=== PATIENT | male | born 1960 | race Caucasian/White ===

== ENCOUNTER 2017-07-26 09:19 | Day surgery (SDC) | payer BC, OTHER ==
[2017-07-26] MEDS ORDERED: LACTATED RINGERS 1,000 ML IV ONE (09:53)
[2017-07-26] MEDS ORDERED: fentaNYL 100 MCG/2 ML VIAL IVP ONE (11:19)
[2017-07-26] MEDS ORDERED: MIDAZOLAM 2 MG/2 ML VIAL IVP ONE (11:19)
[2017-07-26 11:49] VITALS: BP 126/78
== END 2017-07-26 09:20 | disposition home or self-care (01) ==
LOC: SDS 09:19
PROVIDERS: ATTEND Surgery
PROC: 0DJD8ZZ Inspection of Lower Intestinal Tract, Via Natural or Artificial Opening Endoscopic (ICD-10-PCS; principal; 2017-07-26 10:30)
DX: Z12.11 Encounter for screening for malignant neoplasm of colon (principal); K57.30 Diverticulosis of large intestine without perforation or abscess without bleeding; Z86.010 Personal history of colon polyps; K64.8 Other hemorrhoids; J44.9 Chronic obstructive pulmonary disease, unspecified; Z87.891 Personal history of nicotine dependence
CPT/HCPCS: 45378; J7120

== ENCOUNTER 2021-05-26 08:55 | Outpatient (CLI) | payer OTHER ==
--- NOTE | 2021-05-26 09:41 | CT Report ---
PROCEDURE: Low Dose Lung Cancer Screen INDICATIONS: CURRENT SMOKER TECHNIQUE: Noncontrast low-dose images were acquired from the pulmonary apices to the posterior costophrenic ang les. Multiplanar MIP reformats were then acquired. For radiation dose reduction, the following was used: automated exposure control, adjustment of mA and/or kV according to patient size. COMPARISON: None. FINDINGS: Image quality: Excellent. Lungs and pleura: There is extensive bilateral tree-in-bud patchy opacity, involving all lobes of th e lungs, with relative sparing of the upper lobes. Findings are consistent with chronic atypical infe ction. There is also mild diffuse bronchial wall thickening and bronchiectasis. No suspicious solid l gisela nodules are identified. Mediastinum: Heart size is normal. No pericardial effusion. Mild coronary artery calcifications. N o mediastinal adenopathy by size criteria. Thoracic aorta and central pulmonary arteries are normal in size. Esophagus is normal in caliber. No hiatal hernia. Bones and chest wall: No suspicious bony lesions. No vertebral body compression fractures. No axil julito or supraclavicular adenopathy by size criteria. The thyroid is normal in size and there are no incidental findings. Abdomen: Visualized upper abdomen solid organs and bowel loops appear normal in the absence of contr ast. IMPRESSION: 1. LungRads category 1: Negative. No nodules and/or definitely benign nodules. 2. Annual low-dose noncontrast CT of the chest is recommended for lung cancer screening. 3. Clinically significant or potentially clinically significant findings (nonlung cancer): Extensive bilateral tree-in-bud patchy opacities, consistent with chronic atypical infection. Diffuse bronchial wall thickening and bronchiectasis are also present. Additionally, there are mild coronary artery ca lcifications. Comment: Would recommend 3 month follow-up CT of the chest, in addition to the yearly lung screening CT. From stenosis to document lack of progression or stability or improvement in the diffuse tree-in- bud opacities. CLINICAL RECOMMENDATION STATEMENTS: In patients <35 years with an ITN detected on CT, MRI, or extrathyroidal ultrasound, the Committee re commends further evaluation with dedicated thyroid ultrasound if the nodule is "e1 cm and has no susp icious imaging features, and if the patient has normal life expectancy. In patients "e35 years with an ITN detected on CT, MRI, or extrathyroidal ultrasound, the Committee r ecommends further evaluation with dedicated thyroid ultrasound if the nodule is "e1.5 cm and has no s uspicious imaging features, and if the patient has normal life expectancy. (ACR, 2014) Reviewed by: Kanu Thibodeaux MD on 05/26/2021 9:40 AM PDT Approved by: Kanu Thibodeaux MD on 05/26/2021 9:40 AM PDT Station ID: [id number]
== END 2021-05-26 08:56 | disposition home or self-care (01) ==
LOC: DI 08:55
PROVIDERS: ATTEND Registered Nurse
DX: Z12.2 Encounter for screening for malignant neoplasm of respiratory organs (principal); F17.210 Nicotine dependence, cigarettes, uncomplicated; R91.8 Other nonspecific abnormal finding of lung field; J47.9 Bronchiectasis, uncomplicated; I25.10 Atherosclerotic heart disease of native coronary artery without angina pectoris

== ENCOUNTER 2022-12-22 09:12 | Outpatient (CLI) | payer OTHER ==
--- NOTE | 2022-12-22 13:17 | CT Report ---
PROCEDURE: Low Dose Lung Cancer Screen INDICATIONS: CURRENT SMOKER TECHNIQUE: Noncontrast low-dose axial images were acquired from the pulmonary apices to the posterior costophren ic angles. Multiplanar MIP reformats were then reconstructed. For radiation dose reduction, the follo wing was used: automated exposure control, adjustment of mA and/or kV according to patient size. COMPARISON: 05/26/2021 FINDINGS: Prior cancer history: Unsure. Lungs and pleura: Mild emphysema. Nodules include: -Right middle lobe: 3 mm (4/222), unchanged. -Left upper lobe: 4 mm (4/94), unchanged. Lingular scarring and/or atelectasis. No pleural effusion. Extensive centrilobular/tree-in-bud nodula rity present on the prior exam has resolved. Mediastinum: No pericardial effusions. Multivessel coronary artery calcifications. Chest wall and lower neck: No axillary or supraclavicular adenopathy by size. Bones: No aggressive osseous abnormality. Upper Abdomen: Unremarkable. IMPRESSION: Lung RAD: 2 - Benign. Recommendation: Continue annual screening in 12 Months with LDCT Non-Lung Significant Findings: None. Reviewed by: Malik Cole MD on 12/22/2022 1:16 PM PDT Approved by: Malik Cole MD on 12/22/2022 1:16 PM PDT Station ID: [id number]
== END 2022-12-22 09:13 | disposition home or self-care (01) ==
LOC: DI 09:12
PROVIDERS: ATTEND Registered Nurse
DX: Z12.2 Encounter for screening for malignant neoplasm of respiratory organs (principal); J43.9 Emphysema, unspecified; F17.200 Nicotine dependence, unspecified, uncomplicated

== ENCOUNTER 2023-12-19 08:19 | Outpatient (CLI) | payer MEDICARE, OTHER ==
--- NOTE | 2023-12-19 12:17 | Ultrasound Report ---
PROCEDURE: Aorta Screening INDICATIONS: AAA SCREENING, SMOKER TECHNIQUE: Real time scanning was performed of the aorta and iliac arteries, with image documentatio n. COMPARISON: None. FINDINGS: Aorta: Proximal aortic diameter measures 2.7 x 2.8 cm. Mid-aorta measures 2.0 x 2.0 cm. Distal aor tic diameter is 1.8 x 1.7 cm. Iliac arteries: Right common iliac artery measures 1.2 x 1.3 cm. Left common iliac artery measures 1.2 x 1.2 cm. Diffusely calcified atherosclerotic plaque IMPRESSION: Atherosclerotic plaque without abdominal aortic aneurysm Recommended intervals for follow-up imaging of ectatic aortas and abdominal aortic aneurysms, per ACR consensus guidelines: 2.5-2.9 cm: 5 years 3.0-3.4 cm: 3 years 3.5-3.9 cm: 2 years 4.0-4.4 cm: 1 year 4.5-4.9 cm: 6 months + endovascular referral 5.0-5.5 cm: 3-6 months + endovascular referral Reviewed by: Aguila Lovett MD on 12/19/2023 11:16 AM BRITTANY Approved by: Aguila Lovett MD on 12/19/2023 11:16 AM BRITTANY Station ID: [id number]
--- NOTE | 2023-12-19 16:27 | CT Report ---
PROCEDURE: Lung Cancer Screen INDICATIONS: AAA SCREENING, SMOKER TECHNIQUE: A CT scan of the chest was performed. Intravenous contrast media was not administered. Images were re corded and evaluated at appropriate window settings. Reformats: axial MIP of the chest, coronal and s agittal. For radiation dose reduction, the following was used: automated exposure control, adjustment of mA and/or kV according to patient size. COMPARISON: None. FINDINGS: Image quality: Excellent. Prior cancer history: Unsure. Lungs and pleura: No pleural effusions. No pneumothorax. No suspicious pulmonary nodules which requi re follow up. Mediastinum: Heart size is normal. No pericardial effusion. No large vessel abnormality. No mediastin al adenopathy by size criteria. Chest wall and lower neck: Thyroid is unremarkable. No axillary or supraclavicular adenopathy by size . Bones: No aggressive osseous abnormality. Upper Abdomen: Unremarkable. IMPRESSION: Lung RAD: 1 - Negative. Recommendation: Continue annual screening in 12 Months with LDCT Non-Lung Significant Findings: None. Reviewed by: Karely Fuller MD on 12/19/2023 4:26 PM PDT Approved by: Karely Fuller MD on 12/19/2023 4:26 PM PDT Station ID: [id number]
== END 2023-12-19 08:20 | disposition home or self-care (01) ==
LOC: DI 08:19
PROVIDERS: ATTEND Registered Nurse
DX: Z13.6 Encounter for screening for cardiovascular disorders (principal); I70.0 Atherosclerosis of aorta; Z12.2 Encounter for screening for malignant neoplasm of respiratory organs; F17.210 Nicotine dependence, cigarettes, uncomplicated